=== PATIENT | female | born 1995 | race Asian ===

== ENCOUNTER 2022-02-11 23:40 | Inpatient (IN) | payer BC ==
[2022-02-12] MEDS ORDERED: ELECTROLYTE-148 SOLN 1,000 ML IV SCH (00:30)
[2022-02-12] MEDS ORDERED: AMPICILLIN - 2 GM in SODIUM CHLORIDE 100 ML IVPB ONE (01:00)
[2022-02-12] MEDS ORDERED: AMPICILLIN SODIUM 2 GM VIAL ONE (01:05)
[2022-02-12 01:51] LABS: BASO % 0.4 % (0-2.0); EOS % 0.9 % (0-4.5); HEMATOCRIT 35.9 % (32.4-45.2); HEMOGLOBIN 12.1 GM/dL (10.7-15.3); LYMPH % 22.1 % (8-40); MCH 27.5 pg (25.7-33.7); MCHC 33.6 g/dl (32.0-36.0); MEAN CELL VOLUME 81.7 fl (80-96); MEAN PLT VOLUME 9.2 fl (7.5-11.1); MONO % 6.7 % (3.8-10.2); NEUT % 69.9 % (42.8-82.8); PLATELET COUNT 153 10^3/uL (134-434); WHITE BLOOD COUNT 11.1 K/mm3 (4.0-10.0)
[2022-02-12 01:57] LABS: INR 0.96 (0.83-1.09)
[2022-02-12 01:59] LABS: ACTIVATED PTT 31.6 SECONDS (25.2-36.5)
[2022-02-12 02:09] VITALS: BMI 29.2
[2022-02-12 02:17] LABS: CALCIUM 8.7 mg/dL (8.5-10.1)
[2022-02-12 02:18] LABS: ALBUMIN 2.8 g/dl (3.4-5.0); BLOOD UREA NITROGEN 11.5 mg/dL (7-18)
[2022-02-12 02:21] LABS: CREATININE 0.5 mg/dL (0.55-1.3)
[2022-02-12 02:23] LABS: BILIRUBIN,TOTAL 0.2 mg/dL (0.2-1); TOT PROT 6.1 g/dl (6.4-8.2)
[2022-02-12] MEDS ORDERED: AMPICILLIN SODIUM 1 GM VIAL ONE ×4 (04:46→17:04)
[2022-02-12] MEDS: AMPICILLIN - 1 GM in SODIUM CHLORIDE 100 ML IVPB SCH ×4 (05:00→17:15)
[2022-02-12] MEDS ORDERED: OXYTOCIN 30 UNITS in 0.9% NS 30 UNIT/500 ML INFUS.BAG IVPB ONE (06:36)
[2022-02-12] MEDS ORDERED: OXYTOCIN 30 UNITS in 0.9% NS 30 UNIT/500 ML INFUS.BAG IVPB SCH (06:45)
[2022-02-12] MEDS ORDERED: FENTANYL/BUPIVACAINE/NS/PF - PCEA - 50 ML DISP.SYRIN EP ONE (14:54)
[2022-02-12] MEDS ORDERED: BUPIVACAINE HCL/PF 0.25% (2.5MG/ML) 10 ML VIAL ONE (15:58)
[2022-02-12] MEDS ORDERED: SODIUM CHLORIDE 1,000 ML IV SCH ×2 (16:30)
[2022-02-12] MEDS ORDERED: NALOXONE HCL 0.4 MG/ML VIAL IVPUSH PRN (16:36)
[2022-02-12] MEDS ORDERED: FENTANYL/BUPIVACAINE/NS/PF - PCEA - 50 ML DISP.SYRIN EP SCH (16:45)
[2022-02-12] MEDS ORDERED: LIDOCAINE HCL 1% PRESERVATIVE FREE - 30ML VIAL ONE (17:13)
[2022-02-12] MEDS ORDERED: OXYTOCIN 20 UNITS in 0.9% NS 20 UNIT/1,000 ML INFUS.BAG IV ONE ×3 (17:14→22:03)
[2022-02-12] MEDS ORDERED: ACETAMINOPHEN 325 MG TABLET (FP) PO PRN (19:16)
[2022-02-12] MEDS ORDERED: IBUPROFEN 600 MG TABLET (FP) PO PRN (19:16)
[2022-02-12] MEDS ORDERED: BISACODYL 10 MG SUPP.RECT RC PRN (19:16)
[2022-02-12] MEDS ORDERED: METHYLERGONOVINE MALEATE 0.2 MG/1 ML AMP IM PRN (19:16)
[2022-02-12] MEDS ORDERED: oxyCODONE HCL 5 MG TABLET PO PRN (19:16)
[2022-02-12] MEDS ORDERED: BENZOCAINE 20% 57 GM BOTTLE TP PRN (19:16)
[2022-02-12] MEDS ORDERED: BENZOCAINE 28 GM HEMORRHOIDAL OINTMENT TP PRN (19:16)
[2022-02-12] MEDS ORDERED: WITCH HAZEL 50% (TUCKS) 40 PAD/JAR PAD TP PRN (19:16)
[2022-02-12] MEDS ORDERED: OXYTOCIN 20 UNITS in 0.9% NS 20 UNIT/1,000 ML INFUS.BAG IV SCH (19:30)
[2022-02-12 19:45] LABS: HEPATITIS B SURFACE AG MATERN NON-REACTIVE (NONREACTIVE); SYPHILIS W/ RPR CONF NON-REACTIVE (NONREACTIVE)
[2022-02-12] MEDS ORDERED: OXYTOCIN 10 UNITS/ML VIAL ONE (19:55)
[2022-02-12] MEDS ORDERED: OXYTOCIN IV ONE (20:00)
[2022-02-12] MEDS ORDERED: SODIUM CHLORIDE IV ONE (20:00)
[2022-02-12 20:14] LABS: HIV INTERPRETATION NEGATIVE (NEGATIVE)
[2022-02-12] MEDS: METHYLERGONOVINE MALEATE 0.2 MG/1 ML AMP IM SCH ×3 (21:00→22:00)
[2022-02-12] MEDS ORDERED: MISOPROSTOL 200 MCG TABLET ONE (21:03)
[2022-02-12] MEDS ORDERED: MISOPROSTOL 200 MCG TABLET PV ONE (21:06)
[2022-02-12 21:30] LABS: BASO % 0.2 % (0-2.0); HEMOGLOBIN 9.9 GM/dL (10.7-15.3); MCH 26.8 pg (25.7-33.7); MEAN CELL VOLUME 83.9 fl (80-96); MEAN PLT VOLUME 8.9 fl (7.5-11.1); MONO % 7.8 % (3.8-10.2); PLATELET COUNT 173 10^3/uL (134-434); RBC 3.69 M/mm3 (3.60-5.2); RDW 15.7 % (11.6-15.6); WHITE BLOOD COUNT 27.3 K/mm3 (4.0-10.0)
[2022-02-12 21:34] LABS: CORD BASE EXCESS -8.4 mmol/L (0-2); CORD HCO3 19.7 mmHg (20-29); CORD PCO2 49.6 mmHg (30-78); CORD pH 7.217 (7.14-7.44)
[2022-02-12 21:45] LABS: CORD BASE EXCESS -8.7 mmol/L (0-2); CORD HCO3 18.4 mmHg (20-29); CORD PCO2 43.5 mmHg (30-78); CORD pH 7.244 (7.14-7.44)
[2022-02-12] MEDS ORDERED: PROPOFOL 20 ML ONE (21:59)
[2022-02-12] MEDS ORDERED: MIDAZOLAM HCL 2 MG/2 ML SINGLE DOSE VIAL ONE ×2 (21:59→23:21)
[2022-02-12] MEDS ORDERED: SUCCINYLCHOLINE CHLORIDE 200 MG/10 ML SYRINGE ONE (22:01)
[2022-02-12 22:08] LABS: INR 1.05 (0.83-1.09); PROTHROMBIN TIME (PATIENT) 12.1 SEC (9.7-13.0)
[2022-02-12 22:10] LABS: ANISOCYTOSIS 2+; MACROCYTOSIS 0; OVALOCYTE 1+
[2022-02-12] MEDS ORDERED: ceFAZolin SODIUM 1 GM VIAL IVPB ONE (22:29)
[2022-02-12] MEDS ORDERED: ceFAZolin SODIUM 1 GM VIAL ONE (22:38)
[2022-02-12] MEDS ORDERED: ONDANSETRON 4 MG/2 ML VIAL ONE (22:38)
[2022-02-12] MEDS ORDERED: ePHEDrine SULFATE 50 MG/1 ML AMPULE ONE (22:38)
[2022-02-12] MEDS ORDERED: PHENYLEPHRINE HCL 10 MG/1 ML SINGLE DOSE VIAL ONE (22:38)
[2022-02-12] MEDS ORDERED: MEPERIDINE HCL 25 MG/ML VIAL ONE (23:46)
[2022-02-12] MEDS ORDERED: ONDANSETRON 4 MG/2 ML VIAL IVPUSH PRN (23:49)
[2022-02-12] MEDS ORDERED: MEPERIDINE HCL 50 MG/ML VIAL IVPUSH ONE (23:50)
[2022-02-12] MEDS ORDERED: MEPERIDINE HCL CARPU-JECT 25 MG/1 ML DISP.SYRIN IVPUSH ONE (23:55)
[2022-02-13] MEDS ORDERED: MEPERIDINE HCL CARPU-JECT 25 MG/1 ML DISP.SYRIN IVPUSH ONE (00:03)
[2022-02-13] MEDS ORDERED: KETOROLAC TROMETHAMINE 30 MG/1 ML VIAL IVPUSH ONE (00:07)
[2022-02-13] MEDS ORDERED: ACETAMINOPHEN 1000 MG/100 ML BAG IVPB PRN (00:07)
[2022-02-13] MEDS ORDERED: FENTANYL CITRATE/PF 50 MCG/ML VIAL ONE (00:07)
[2022-02-13] MEDS ORDERED: OXYTOCIN 20 UNITS in 0.9% NS 20 UNIT/1,000 ML INFUS.BAG IV SCH (00:15)
[2022-02-13] MEDS ORDERED: OXYTOCIN 30 UNITS in 0.9% NS 30 UNIT/500 ML INFUS.BAG IVPB SCH (00:15)
[2022-02-13] MEDS ORDERED: ceFAZolin 2 GRAM PREMIX BAG IVPB SCH (00:45)
[2022-02-13] MEDS: CEFAZOLIN SODIUM 2 GM in DEXTROSE 5%-WATER 100 ML IVPB SCH ×3 (05:49→21:47)
[2022-02-13 09:20] LABS: BASO % 0.4 % (0-2.0); EOS % 0.1 % (0-4.5); HEMATOCRIT 26.1 % (32.4-45.2); HEMOGLOBIN 8.8 GM/dL (10.7-15.3); LYMPH % 14.8 % (8-40); MCHC 33.6 g/dl (32.0-36.0); MEAN CELL VOLUME 83.2 fl (80-96); MEAN PLT VOLUME 8.8 fl (7.5-11.1); MONO % 7.2 % (3.8-10.2); NEUT % 77.5 % (42.8-82.8); PLATELET COUNT 102 10^3/uL (134-434); RBC 3.14 M/mm3 (3.60-5.2); RDW 15.5 % (11.6-15.6); WHITE BLOOD COUNT 18.2 K/mm3 (4.0-10.0)
[2022-02-13] MEDS ORDERED: PRENATAL VITAMINS W/ FOLIC ACID TABLET (FP) PO SCH (10:00)
[2022-02-13] MEDS: PRENATAL VITAMINS W/ FOLIC ACID TABLET (FP) PO SCH (10:30)
[2022-02-13 11:12] LABS: POC NITRAZINE POS
[2022-02-13 13:01] LABS: BASO % 0.2 % (0-2.0); EOS % 0.3 % (0-4.5); HEMATOCRIT 22.2 % (32.4-45.2); HEMOGLOBIN 7.6 GM/dL (10.7-15.3); LYMPH % 14.9 % (8-40); MCH 28.1 pg (25.7-33.7); MCHC 34.2 g/dl (32.0-36.0); MEAN CELL VOLUME 82.1 fl (80-96); MEAN PLT VOLUME 8.7 fl (7.5-11.1); MONO % 9.8 % (3.8-10.2); NEUT % 74.8 % (42.8-82.8); PLATELET COUNT 101 10^3/uL (134-434); RBC 2.71 M/mm3 (3.60-5.2); RDW 15.3 % (11.6-15.6); WHITE BLOOD COUNT 15.9 K/mm3 (4.0-10.0)
[2022-02-13] MEDS ORDERED: SENNOSIDES/DOCUSATE COMBO (SENNA PLUS) TABLET (UD) PO PRN (22:00)
[2022-02-14 07:10] LABS: BASO % 0.2 % (0-2.0); EOS % 0.8 % (0-4.5); HEMOGLOBIN 9.8 GM/dL (10.7-15.3); LYMPH % 16.1 % (8-40); MCH 28.9 pg (25.7-33.7); MEAN CELL VOLUME 82.5 fl (80-96); MEAN PLT VOLUME 8.3 fl (7.5-11.1); MONO % 6.6 % (3.8-10.2); NEUT % 76.3 % (42.8-82.8); PLATELET COUNT 94 10^3/uL (134-434); RBC 3.39 M/mm3 (3.60-5.2); RDW 15.7 % (11.6-15.6); WHITE BLOOD COUNT 16.4 K/mm3 (4.0-10.0)
[2022-02-14 08:07] VITALS: BP 105/64; PULSE 80; TEMP 98
[2022-02-14] MEDS: PRENATAL VITAMINS W/ FOLIC ACID TABLET (FP) PO SCH (10:22)
== END 2022-02-14 13:55 | disposition home or self-care (01) | DRG 768 ==
LOC: JLDR 23:40 → J3W 02-13 01:20
PROVIDERS: ADMIT Obstetrics & Gynecology; ATTEND Obstetrics & Gynecology
PROC: 30233N1 Transfusion of Nonautologous Red Blood Cells into Peripheral Vein, Percutaneous Approach (ICD-10-PCS; 2022-02-12)
PROC: 10E0XZZ Delivery of Products of Conception, External Approach (ICD-10-PCS; principal; 2022-02-12 22:00)
PROC: 0UQC7ZZ Repair Cervix, Via Natural or Artificial Opening (ICD-10-PCS; 2022-02-13)
PROC: 10D17ZZ Extraction of Products of Conception, Retained, Via Natural or Artificial Opening (ICD-10-PCS; 2022-02-13)
PROC: 0HQ9XZZ Repair Perineum Skin, External Approach (ICD-10-PCS; 2022-02-13)
PROC: 0UC97ZZ Extirpation of Matter from Uterus, Via Natural or Artificial Opening (ICD-10-PCS; 2022-02-13)
PROC: 8E0 Other Procedures, Physiological Systems and Anatomical Regions, Other Procedures (ICD-10-PCS; 2022-02-13)
PROC: 2Y44X5Z Packing of Female Genital Tract using Packing Material (ICD-10-PCS; 2022-02-13)
DX: O99.824 Streptococcus B carrier state complicating childbirth (principal); Z37.0 Single live birth; Z3A.38 38 weeks gestation of pregnancy; O70.0 First degree perineal laceration during delivery; O72.1 Other immediate postpartum hemorrhage
CPT/HCPCS: 36415; 36430; 36600; 59409; 80053; 82803; 83986-QW; 85025; 85610; 85730; 86762; 86780; 86850; 86900; 86901; 86922; 87340; 87389; 88305-TC; 94760; C9803-CS; P9058; U0003; U0005